=== PATIENT | female | born 1930 | race Caucasian/White ===

== ENCOUNTER 2017-01-15 16:35 | Emergency (ER) | payer OTHER, MEDICARE ==
[~2017-01-15] VITALS: Ht 157.5 cm; Wt 67.1 kg
[~2017-01-15 16:35] MED LIST: ASPIRIN CHILDRE81 MG PO; ATENOLOL25 M1 PO; ATIVAN0.5 M1 PO; CENTRUM1 TA1 PO; LISINOPRIL AND1 TA2 PO; LYRICA75 M1 PO; OXYCODONE5 M1 PO; PERCOCET 325 MG1 TA2 PO; PRAVACHOL40 M1 PO; PRAVASTATIN40 MG PO; PRINIVIL 5MG5 MG PO
--- NOTE | 2017-01-15 18:02 | ED UPPER/LOWER EXTREMITY COMPL ---
History of Present Illness General Chief Complaint: Lower Extremity Problems Stated Complaint: FOOT, LEG SWELLING; PAIN UP TO HIP Source: patient Exam Limitations: no limitations Allergies Coded Allergies: aspirin (STOMACH UPSET 01/15/17) Reconcile Medications Aspirin (Children's Aspirin) 81 MG TAB.CHEW 81 MG PO DAILY HEART (Reported) Atenolol 25 MG TABLET 25 MG PO DAILY HTN (Reported) Clopidogrel Bisulfate (Plavix) 75 MG TABLET 1 TAB PO DAILY peripheral artery disease LISINOPRIL/HYDROCHLOROTHIAZIDE (Lisinopril-Hctz 20-25 MG Tab) 20 MG-25 MG TABLET 1 TAB PO DAILY BP (Reported) Lorazepam (Ativan) 0.5 MG TAB 0.5 MG PO Q6HR PRN ANXIETY (Reported) Multivitamins (Centrum) 1 TAB TAB 1 TAB PO DAILY MULTIVITAMIN (Reported) OXYCODONE HCL/ACETAMINOPHEN (Percocet 5-325 MG Tablet) 325 MG/5 MG TAB 1 TAB PO Q4-6 PRN PRN PAIN (Reported) Pravastatin Sodium 40 MG TABLET 1 TAB PO QPM CHOLESTEROL (Reported) Pregabalin (Lyrica) 75 MG CAPSULE 1 CAP PO BID PAIN IN FEET (Reported) Tylenol With Codeine (Tylenol With Codeine #3 Tablet) 300 MG-30 MG TABLET 1 TAB PO Q6 PRN pain may cause drowsiness Triage Note: PT STATES SHE GOT A CRAMP IN HER RIGHT LEG LAST NIGHT AND THEN THE LEG SWELLED UP. Triage Nurses Notes Reviewed? yes HPI: Patient is an 86-year-old female presents complaining of right lower extremity pain and swelling. Patient reports she was getting out of bed onto her commode overnight when she felt pain in her right lower extremity. Pain is currently moderate, was severe at home. Patient took ibuprofen this afternoon with moderate improvement. Pain mildly worsens with ambulation. Patient denies any fall or known trauma, numbness, weakness, decreased range of motion. (ASHLEY LOTT,BOBY) Vital Signs & Intake/Output Vital Signs & Intake/Output Vital Signs Date Time Temp Pulse Resp B/P Pulse O2 O2 Flow FiO2 Ox Delivery Rate 01/15 1945 96.2 95 20 148/67 97 Room Air 01/15 1641 97.7 106 16 159/70 96 Room Air Past History Travel History Traveled to [place] past 21 day No Medical History Any Pertinent Medical History? 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 No (BOBY WATKINS) Review of Systems Review of Systems Constitutional: Denies: chills, fever. EENTM: Reports: no symptoms. Respiratory: Denies: short of breath. Cardiovascular: Denies: chest pain. Gastrointestinal/Abdominal: Denies: abdominal pain. Genitourinary: Reports: no symptoms. Musculoskeletal: Reports: see HPI. Denies: back pain, neck pain. Skin: Reports: no symptoms. Neurological/Psychological: Denies: numbness, paresthesia. Hematologic/Endocrine: Denies: bruising, bleeding. Immunological: Denies: splenectomy. (BOBY WATKINS) Physical Exam Physical Exam General Appearance: well developed/nourished, alert, awake Head: atraumatic, normal appearance Eyes: Bilateral: normal appearance, PERRL, EOMI. Ears, Nose, Throat: hearing grossly normal Neck: normal inspection, supple, full range of motion Cardiovascular/Respiratory: normal breath sounds, regular rate/rhythm, no respiratory distress, systolic murmur 3 out of 6 Peripheral Pulses: 2+ tibialis posterior (R), 2+ tibialis posterior (L), 0 dorsalis pedis (R) ( present with doppler), 2+ dorsalis pedis (L) Back: normal inspection, normal range of motion Leg Right: normal range of motion, normal inspection Hip Right: normal range of motion, normal inspection Knee Right: normal range of motion, swelling in the popliteal fossa. Foot Right: minimal swelling right lateral malleolus. Unable to palpate right dorsalis pedis pulse. Dorsalis pedis pulse present with hand-held Doppler. Capillary refill less than 2 seconds. Skin warm, color normal. Neurologic/Tendon: normal sensation, normal motor functions, normal tendon functions Skin: intact, normal color, warm/dry Lymphatic: no inguinal lymphadenopathy (BOBY WATKINS) Progress Differential Diagnosis: arterial insufficiency, cellulitis, compartment syndrome , contusion, DVT, fracture, septic arthritis, sprain Diagnostic Imaging: Viewed by Me: Ultrasound. Discussed w/RAD: Ultrasound. Radiology Impression: PATIENT: DOC NOBLE PRESENT AGE: 86 PATIENT ACCOUNT NO: [id number] : 31 LOCATION: [facility] ORDERING PHYSICIAN: BOBY LOTT SERVICE DATE: 01/15/17 EXAM TYPE: US - US-UNILATERAL VENOUS DOPPLER EXAMINATION: US TRIPLEX LOWER EXTREMITY, RIGHT CLINICAL INFORMATION: Pain. Leg tenderness. COMPARISON: None TECHNIQUE: Color- flow triplex imaging with spectral analysis and compression Doppler were performed on the right lower extremity. FINDINGS: Respiratory variation, normal compression and augmented flow are noted throughout the lower extremity. The visualized common femoral vein, superficial femoral vein, profunda femoral vein, popliteal vein and midcalf peroneal and posterior tibial venous segments show no evidence of deep venous thrombosis. There is no Bhandari's cyst. IMPRESSION: Normal triplex scan without evidence of deep venous thrombosis involving the right lower extremity. DICTATED BY: JACOB STONER MD DATE/TIME DICTATED:01/15/172015 QUAHOGGER:ROBERTH DATE/TIME TRANSCRIBED:01/15/172015 CONFIDENTIAL, DO NOT COPY WITHOUT APPROPRIATE AUTHORIZATION. <Electronically signed in Other Vendor System> SIGNED BY: JACOB STONER MD 01/15/172019 (BOBY WATKINS) Plan of Care: Orders Procedure Date/time Status US-DUPLEX SCAN LOWER EXT ARTER 01/15 1824 Active PARTIAL THROMBOPLASTIN TIME 01/15 1824 Complete PROTHROMBIN TIME 01/15 1824 Complete COMPREHENSIVE METABOLIC PANEL 01/15 1824 Complete CBC WITHOUT DIFFERENTIAL 01/15 1824 Complete Laboratory Tests 01/15/17 194: Anion Gap 13, Estimated GFR 53 L, BUN/Creatinine Ratio 20.0, Glucose 141 H, Calcium 9.7, Total Bilirubin 0.5, AST 34, ALT 32, Alkaline Phosphatase 108, Total Protein 7.7, Albumin 4.6, Globulin 3.1, Albumin/Globulin Ratio 1.5, PT 10.2, INR 0.97, APTT 31, CBC w Diff NO MAN DIFF REQ, RBC 4.37, MCV 89.7, MCH 30.4, RDW 14.2, MPV 8.3, Gran % 69.7, Lymphocytes % 23.0, Monocytes % 6.0, Eosinophils % 1.1, Basophils % 0.2, Absolute Granulocytes 6.1, Absolute Lymphocytes 2.0, Absolute Monocytes 0.5, Absolute Eosinophils 0.1, Absolute Basophils 0, PUBS MCHC 33.8 01/15/2017 6:34:57 PM: Discussed with and seen by Dr. Cho. 01/15/2017 8:22:55 PM: Patient ambulates well with a walker in the emergency department. 01/15/2017 9:10:03 PM: Discussed with Dr. Rich: can start on plavix and have follow up in the office. Plan discussed with patient and her daughter. I tried to call the patient's other daughter with the phone number listed in the nursing notes but the phone was busy with 2 attempts. (BOBY WATKINS) Departure Departure Time of Disposition: 2117 Disposition: HOME OR SELF CARE Condition: Stable Clinical Impression Primary Impression: Peripheral artery disease Secondary Impressions: Right leg pain Referrals: JOSÉ MIGUEL RILEY,BLAINE Bhandari (PCP/Family) CURLY DOOLEY,JENNIFER Additional Instructions: Follow-up with your primary care provider and with the vascular surgeon Dr. Merino for further evaluation. Call in the morning for appointments to be seen within 1 week for further evaluation. Return to the ER if worsening of symptoms. Departure Forms: Customer Survey General Discharge Information Prescriptions: Current Visit Scripts Clopidogrel Bisulfate (Plavix) 1 TAB PO DAILY #30 TAB Tylenol With Codeine (Tylenol With Codeine #3 Tablet) 1 TAB PO Q6 PRN pain #15 TAB may cause drowsiness (BOBY WATKINS) PA/DESIGN PRINTING MACHINE SET UP OPERATOR Co-Sign Statement Statement: ED Attending supervision documentation- [X] I saw and evaluated the patient. I have also reviewed all the pertinent lab results and diagnostic results. I agree with the findings and the plan of care as documented in the PA's/DESIGN PRINTING MACHINE SET UP OPERATOR's documentation. [] I have reviewed the ED Record and agree with the PA's/DESIGN PRINTING MACHINE SET UP OPERATOR's documentation. [] Additions or exceptions (if any) to the PAs/DESIGN PRINTING MACHINE SET UP OPERATOR's note and plan are summarized below: [] (SINDHU DOOLEY,HAKEEM Cobb)
[2017-01-15 19:45] VITALS: BP 148/67
[2017-01-15 20:01] LABS: ABSOLUTE BASOPHIL COUNT 0 /CUMM (0.0-0.2); ABSOLUTE EOSINOPHIL COUNT 0.1 /CUMM (0.0-0.7); ABSOLUTE GRANULOCYTE CT 6.1 /CUMM (1.4-6.5); ABSOLUTE MONOCYTE COUNT 0.5 /CUMM (0.10-0.60); BASOPHIL % 0.2 % (0.0-2.0); EOSINOPHIL % 1.1 % (0-5); GRANULOCYTE % 69.7 % (42.2-75.2); HEMATOCRIT 39.2 % (37-47); MEAN CORPUSCULAR HGB 30.4 PG (27.0-31.0); MEAN CORPUSCULAR HGB CONC 33.8 G/DL (33.0-37.0); MEAN CORPUSCULAR VOLUME 89.7 FL (81.0-99.0); MEAN PLATELET VOLUME 8.3 FL (7.4-10.4); PLATELET COUNT 193 /CUMM (130-400); RBC DISTRIBUTION WIDTH 14.2 % (11.5-14.5); RED BLOOD CELL CT 4.37 /CUMM (4.20-5.40); WHITE BLOOD CELL COUNT 8.7 /CUMM (4.8-10.8)
[2017-01-15 20:15] LABS: PT 10.2 SEC (9.4-12.5); PTT 31 SEC (25-37)
--- NOTE | 2017-01-15 20:20 | ULTRASOUND REPORT ---
EXAMINATION: US TRIPLEX LOWER EXTREMITY, RIGHT CLINICAL INFORMATION: Pain. Leg tenderness. COMPARISON: None TECHNIQUE: Color-flow triplex imaging with spectral analysis and compression Doppler were performed on the right lower extremity. FINDINGS: Respiratory variation, normal compression and augmented flow are noted throughout the lower extremity. The visualized common femoral vein, superficial femoral vein, profunda femoral vein, popliteal vein and midcalf peroneal and posterior tibial venous segments show no evidence of deep venous thrombosis. There is no Bhandari's cyst. IMPRESSION: Normal triplex scan without evidence of deep venous thrombosis involving the right lower extremity.
[2017-01-15] MEDS ORDERED: TYLENOL WITH C1 EACH PO (21:23)
[2017-01-15] MEDS ORDERED: PLAVIX75 M1 PO (21:23)
--- NOTE | 2017-01-16 14:00 | ULTRASOUND REPORT ---
EXAMINATION: US DUPLEX LOWER EXTREMITY ARTERY/GRAFT LIMITED, RIGHT CLINICAL INFORMATION: Right lower extremity pain and swelling, decreased dorsalis pedis pulse. COMPARISON: None TECHNIQUE: Right lower extremity duplex arterial ultrasound was performed. FINDINGS: There is moderate plaque in the common femoral artery with an elevated peak systolic velocity indicating a hemodynamically significant stenosis. Distal to this stenosis throughout the lower extremity the waveforms are biphasic and slightly blunted consistent with this degree of upstream disease. The SFA, PFA, popliteal artery, posterior tibial, anterior tibial, and dorsalis pedis arteries are patent. IMPRESSION: Moderate hemodynamically significant disease at the common femoral artery. No acute occlusion seen.
== END 2017-01-15 21:47 ==
LOC: ERH 16:35
PROVIDERS: Physician Assistant
DX: I73.9 Peripheral vascular disease, unspecified (principal)

== ENCOUNTER 2017-01-19 12:17 | Emergency (ER) | payer OTHER, MEDICARE ==
[~2017-01-19] VITALS: Ht 157.5 cm; Wt 68.9 kg
[~2017-01-19 12:17] MED LIST changes: +PLAVIX75 M1 PO; +TYLENOL WITH C1 EACH PO
[2017-01-19] MEDS ORDERED: ACETAMINOPHEN-1 EAC3 PO (12:51)
[2017-01-19] MEDS ORDERED: LISINOPRIL40 M1 PO (12:52)
[2017-01-19] MEDS ORDERED: SERTRALINE HCL50 MG PO (12:52)
[2017-01-19] MEDS ORDERED: FISH OIL300 MG PO (12:53)
[2017-01-19] MEDS ORDERED: DAILY VALUE1 EACH PO (12:54)
[2017-01-19] MEDS ORDERED: VITAMIN D35000 UNI1 PO (12:54)
[2017-01-19] MEDS ORDERED: STOOL SOFTENER100 M3 PO (12:56)
[2017-01-19 14:24] VITALS: BP 150/67
--- NOTE | 2017-01-19 15:22 | ULTRASOUND REPORT ---
EXAMINATION: US TRIPLEX LOWER EXTREMITY, BILATERAL CLINICAL INFORMATION: Bilateral lower extremity pain and swelling COMPARISON: None TECHNIQUE: Color-flow triplex imaging with spectral analysis and compression Doppler were performed on the bilateral lower extremities. FINDINGS: Respiratory variation, normal compression and augmented flow are noted throughout the bilateral lower extremities. The visualized common femoral vein, superficial femoral vein, profunda femoral vein, popliteal vein and midcalf peroneal and posterior tibial venous segments show no evidence of deep venous thrombosis. There is no Bhandari's cyst. IMPRESSION: Normal triplex scan without evidence of deep venous thrombosis involving the bilateral lower extremities.
--- NOTE | 2017-01-19 16:08 | ED UPPER/LOWER EXTREMITY COMPL ---
History of Present Illness General Chief Complaint: Lower Extremity Problems Stated Complaint: RT LLE PAIN Source: patient, family Exam Limitations: no limitations Vital Signs & Intake/Output Vital Signs & Intake/Output Vital Signs Date Time Temp Pulse Resp B/P Pulse O2 O2 Flow FiO2 Ox Delivery Rate 01/19 1424 98.2 87 20 150/67 96 Room Air 01/19 1223 98.9 100 20 144/73 98 Room Air Allergies Coded Allergies: aspirin (STOMACH UPSET 01/15/17) Reconcile Medications Acetaminophen With Codeine (Acetaminophen-Cod #3 Tablet) 300 MG-30 MG TABLET 1 TAB PO BIDP PRN PAIN (Reported) Atenolol 25 MG TABLET 1 TAB PO DAILY HTN (Reported) Cholecalciferol (Vitamin D3) (Vitamin D3) 5,000 UNIT TABLET 1 TAB PO DAILY SUPPLEMENT (Reported) Clopidogrel Bisulfate (Plavix) 75 MG TABLET 1 TAB PO DAILY peripheral artery disease Docusate Sodium (Stool Softener) 100 MG CAPSULE 1 CAP PO DAILY CONSTIPATION ( Reported) Lisinopril 40 MG TABLET 1 TAB PO DAILY HEART (Reported) Lorazepam (Ativan) 0.5 MG TABLET 1 TAB PO TIDPRN PRN ANXIETY (Reported) Multivitamin (Daily Value) 1 EACH TABLET 1 TAB PO DAILY SUPPLEMENT (Reported) [place]-3 Fatty Acids (Fish Oil) 300 MG CAPSULE 1 CAP PO BID SUPPLEMENT ( Reported) Pravastatin Sodium (Pravachol) 40 MG TABLET 1 TAB PO DAILY CHOLESTEROL ( Reported) Pregabalin (Lyrica) 75 MG CAPSULE 1 CAP PO BID PAIN (Reported) Sertraline HCl 50 MG TABLET 1 TAB PO DAILY MENTAL HEALTH (Reported) Tylenol With Codeine (Tylenol With Codeine #3 Tablet) 300 MG-30 MG TABLET 1 TAB PO Q6 PRN pain may cause drowsiness Triage Note: PT TO ED C/O CONTINUED RLE SWELLING. PT SEEN 01/15 FOR THE SAME, DIAGNOSED WITH PERIPHERAL ARTERY DISEASE, TOLD TO F/U WITH VASUCULAR. PT RETURNS TODAY STATING WORSENING SWELLING. Triage Nurses Notes Reviewed? yes HPI: 86 yo F PMH HTN, HLD, BCA (s/p R. mastectomy) presenting with RLE pain. RLE pain for the last 1-2 weeks, worst in calf, constant, aching, relieved by movement/ walking, radiating to the proximal thigh, patient has had swelling intermittently for years, but usually on LLE. Evaluated for the same in this ED 4 days ago, LE venous U/S negative for DVT, LE arterial U/S with hemodynamically significant stenosis of right femoral artery, started on plavix, f/u scheduled with vascular surgeon 2 days from now, prescribed tylenol #3 but not taking 2/2 concerns about consipation, ongoing pain today, told to return to ED if pain did not resolve. Denies fevers, chills, chest pain, palpitations, SOB, AP, N/V, weakness, numbness, or focal neurologic Sx. ROS (+) for urinary frequency wihtou dysuria, hematuria, change in color/smell of urine. (CANDY MATTHEWS MD) Past History Travel History Traveled to [place] past 21 day No Medical History Any Pertinent Medical History? 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 Yes (CASSIE DOOLEY,CANDY) Review of Systems Review of Systems Constitutional: Denies: chills, fever, malaise, weakness. EENTM: Reports: no symptoms. Respiratory: Denies: orthopnea, short of breath, sputum production, wheezing. Cardiovascular: Reports: peripheral edema. Denies: chest pain, orthopena, palpitations, syncope. Gastrointestinal/Abdominal: Denies: abdominal pain, constipation, diarrhea, nausea, vomiting. Genitourinary: Reports: frequency. Denies: discharge, hematuria, urgency. Musculoskeletal: Denies: back pain, joint pain, muscle pain. Skin: Reports: no symptoms. Neurological/Psychological: Reports: no symptoms. Hematologic/Endocrine: Reports: no symptoms. All Other Systems: Reviewed and Negative (CANDY MATTHEWS MD) Physical Exam Physical Exam General Appearance: no apparent distress, alert, awake, comfortable Head: atraumatic, normal appearance Eyes: Bilateral: normal appearance. Ears, Nose, Throat: normal ENT inspection Neck: supple, full range of motion Cardiovascular/Respiratory: normal peripheral pulses, regular rate/rhythm Peripheral Pulses: 2+ tibialis posterior (R), 2+ tibialis posterior (L), 2+ dorsalis pedis (R), 2+ dorsalis pedis (L) Gastrointestinal: Soft, non-TTP Back: normal inspection, normal range of motion Comments: Extremities: Mild TTP of right calf with (+) artie's sign, Mild rigth calf swelling, Full ROM of right hip/knee/ankle without pain, 2+ symmetric DP/PT pulses, good capillary refill, warm, no neurologic deficits, Compartment (CASSIE DOOLEY,CANDY) Progress Differential Diagnosis: arterial insufficiency, compartment syndrome, DVT, fracture, sprain, tendon injury Plan of Care: Orders Procedure Date/time Status URINE CREATININE, SPOT 01/19 1519 Active URINALYSIS 01/19 1519 Active URINALYSIS 01/19 1417 Complete Laboratory Tests 01/19/17 1420: Urinalysis LIGHT H, Urine Color YEL, Urine Clarity HAZY H, Urine pH 6.0, Ur Specific [place] 1.010, Urine Protein NEG, Urine Ketones NEG, Urine Nitrite NEG, Urine Bilirubin NEG, Urine Urobilinogen 0.2, Ur Leukocyte Esterase MOD H, Ur Microscopic SEDIMENT EXAMINED, Urine RBC RARE, Urine WBC 25-50 H, Ur Epithelial Cells MOD H, Urine Hemoglobin TRACE-INTACT, Urine Glucose NEG Physician MDM: 86 yo F presenitng with 1-2 weeks of RLE pain/swelling. VSS, HR 80s, BLE exam as above. DDx: Muscle strain, DVT, PVD, low concern for acute arterial insufficency given good symmedtric pulses. Repeat venous U/S without DVT. Toradol given with improvement in pain, patient ambulatory at baseline with walker. UA with moderate epis, 25-50 WBCs, nitrite negative, equivocal for infection, discussed with patient and daughter, notes "years" of urinary frequency, will send UCx and hold abx for now given no new urinary Sx, patient will f/u with PMD for results, told to reutrn to ED for dysurua or fevers. Patient counseled that she can use tylenol #3 but should take extra stool softeners to avoid associated constipation. Given reassuring exam and imaging, D /Luigi with return precautions, f/u with vascular surgery already scheduled. D/W Dr. Flanagan. (CASSIE DOOLEY,CANDY) Departure Departure Disposition: HOME OR SELF CARE Condition: Stable Clinical Impression Primary Impression: Right leg pain Referrals: JOSÉ MIGUEL RILEY,BLAINE Bhandari (PCP/Family) Additional Instructions: Take tylenol as needed for pain. Follow up with your primary care physician in the next 2-3 days to get results of urine culture, follow up sooner if you develop pain with urination or fevers. Follow up with the vascular surgeon as scheduled in 2 days. Return to the ED for any concerning symptoms. Departure Forms: Customer Survey General Discharge Information (CASSIE DOOLEY,CANDY) PA/CHEMISTRY TECHNICIAN Co-Sign Statement Statement: ED Attending supervision documentation- [] I saw and evaluated the patient. I have also reviewed all the pertinent lab results and diagnostic results. I agree with the findings and the plan of care as documented in the PA's/CHEMISTRY TECHNICIAN's documentation. [x] I have reviewed the ED Record and agree with the PA's/CHEMISTRY TECHNICIAN's documentation. [] Additions or exceptions (if any) to the PAs/CHEMISTRY TECHNICIAN's note and plan are summarized below: [] (SHAJI CAIN,HAKEEM Bhandari)
== END 2017-01-19 17:14 ==
LOC: ERH 12:17
DX: M79.604 Pain in right leg (principal); M79.89 Other specified soft tissue disorders
CPT/HCPCS: 81001; 82570; 93970; 96372; J1885